=== PATIENT | female | born 1960 | race Caucasian/White ===

== ENCOUNTER 2016-10-13 13:00 | Emergency (ER) | payer MEDICARE | END 2016-10-13 14:00 | disposition home or self-care (01) | LOC: ER1 13:00 | DX: S60.222A Contusion of left hand, initial encounter (principal); I10 Essential (primary) hypertension; E11.9 Type 2 diabetes mellitus without complications; F31.9 Bipolar disorder, unspecified; Z88.1 Allergy status to other antibiotic agents; W20.8XXA Other cause of strike by thrown, projected or falling object, initial encounter; Y92.410 Unspecified street and highway as the place of occurrence of the external cause; Z79.84 Long term (current) use of oral hypoglycemic drugs; Z79.899 Other long term (current) drug therapy | CPT/HCPCS: 29125; 73130; 99283 ==

== ENCOUNTER → 2020-09-09 | Outpatient (CLI) | payer MEDICARE, OTHER ==
[~2020-09-09] MED LIST: ABILIFY 5 MG TAB5 MG PO; AMARYL2 MG PO; ASPIRIN CHEWABL81 MG PO; CALCIUM600 MG PO; CLARITIN10 MG PO; ENTRESTO 97 MG1 EACH PO; FISH OIL 1,2001 EACH PO; FLONASE 0.05% N16 GM; GLUCOPHAGE1000 MG PO; IMDUR ER TAB 3030 MG PO; LASIX20 MG PO; LEXAPRO20 MG PO; LIPITOR TAB 2020 MG PO; NITROSTAT0.4 MG SL; ONCE DAILY1 EACH PO; PRINIVIL20 MG PO; TOPROL XL25 MG PO; TYLENOL ARTHRITIS PO; VITAMIN D32000 UNI1 PO; ZANAFLEX2 MG PO
== END ==
LOC: HEART 5 09:18
DX: I42.9 Cardiomyopathy, unspecified (principal); R07.9 Chest pain, unspecified; I51.7 Cardiomegaly; R93.1 Abnormal findings on diagnostic imaging of heart and coronary circulation
CPT/HCPCS: 93306

== ENCOUNTER → 2020-12-15 | Outpatient (CLI) | payer MEDICARE, OTHER | LOC: MAMO 14:30 | DX: Z12.31 Encounter for screening mammogram for malignant neoplasm of breast (principal) | CPT/HCPCS: 77063; 77067 ==

== ENCOUNTER → 2022-03-17 | Outpatient (CLI) | payer MEDICARE | LOC: MAMO 13:16 | DX: Z12.31 Encounter for screening mammogram for malignant neoplasm of breast (principal) | CPT/HCPCS: 77063; 77067 ==

== ENCOUNTER 2022-04-07 13:18 | Emergency (ER) | payer MEDICARE ==
[2022-04-07 14:45] LABS: HEMOGLOBIN 12.7 gm/dl (12.3-15.3); RED BLOOD COUNT 4.33 M/UL (4.00-5.10)
[2022-04-07] MEDS ORDERED: ISOSORBIDE MONO30 MG PO (18:45)
== END 2022-04-07 19:00 | disposition home or self-care (01) ==
LOC: ER1 13:18
PROVIDERS: Student in an Organized Health Care Education/Training Program
DX: R07.89 Other chest pain (principal); I11.0 Hypertensive heart disease with heart failure; I50.9 Heart failure, unspecified; E11.9 Type 2 diabetes mellitus without complications; Z95.1 Presence of aortocoronary bypass graft; Z88.1 Allergy status to other antibiotic agents; Z90.710 Acquired absence of both cervix and uterus; Z86.79 Personal history of other diseases of the circulatory system
CPT/HCPCS: 71045; 80053; 82550; 82553; 84484; 85025; 93005; 99285